=== PATIENT | female | born 1960 | race Caucasian/White ===

== ENCOUNTER → 2018-02-15 18:45 | Outpatient (CLI) | payer BC | END | disposition home or self-care (01) | LOC: D.MAMMO 09:00 | DX: Z12.31 Encounter for screening mammogram for malignant neoplasm of breast (principal) ==

== ENCOUNTER → 2019-07-06 12:21 | Outpatient (CLI) | payer BC ==
[2019-07-06 12:58] LABS: INR 1.51 (0.85-1.17)
[2019-07-06 12:59] LABS: APTT 67.3 SECONDS (22.8-39.4)
[2019-07-06 13:18] LABS: % SATURATION 19 % (15-55); IRON 72 ug/dl (35-150); TOTAL IRON BIND CAPACITY 369 ug/dl (260-445); UNSAT IRON BIND CAPACITY 297 ug/dl (150-375)
[2019-07-06 13:55] LABS: ALBUMIN 3.7 g/dL (3.4-5.0); ALKALINE PHOSPHATASE 119 U/L (30-120); ALT (SGPT) 99 U/L (10-68); BILIRUBIN - DIRECT 0.16 mg/dL (0.00-0.30); BILIRUBIN - INDIRECT 0.19 mg/dL (0.00-1.00); BILIRUBIN - TOTAL 0.35 mg/dL (0.2-1.3); GAMMA GT 39 U/L (5-85); PROTEIN - SERUM 7.5 g/dL (6.4-8.2)
[2019-07-06 13:57] LABS: FERRITIN 1197 ng/mL (3-244)
[2019-07-07 05:08] LABS: HAPTOGLOBIN 126 mg/dL (33-346)
[2019-07-07 09:08] LABS: ANA REFLEX - DIRECT Negative (Negative)
[2019-07-08 14:08] LABS: MITOCHONDRIAL ANTIBODY <20.0 Units (0.0-20.0); SMOOTH MUSCLE ABS (ACTIN) 6 Units (0-19)
== END | disposition home or self-care (01) ==
LOC: D.LAB 12:21
PROVIDERS: ATTEND Internal Medicine Gastroenterology
DX: R74.8 Abnormal levels of other serum enzymes (principal); R79.89 Other specified abnormal findings of blood chemistry